=== PATIENT | male | born 1965 | race Caucasian/White ===

== ENCOUNTER 2016-08-31 11:47 | Emergency (ER) | payer OTHER ==
[2016-08-31] MEDS ORDERED: CANA1TAB4 PO (12:26)
[2016-08-31] MEDS ORDERED: GLIP10TA13 PO (12:26)
[2016-08-31] MEDS ORDERED: ENAL20TA PO (12:26)
[2016-08-31] MEDS ORDERED: HYDR25TA6 PO (12:26)
[2016-08-31] MEDS ORDERED: METF10002 PO (12:26)
[2016-08-31] MEDS ORDERED: CARV12.543 PO (12:26)
[2016-08-31 12:39] LABS: ASPARTATE AMINO TRANSFERASE 19 U/L (15-37); BLOOD UREA NITROGEN 22 mg/dL (7-18)
[2016-08-31 12:44] LABS: IS PT STATUS REG ER OR PRE ER? YES
[2016-08-31 14:12] VITALS: BP 117/78
== END 2016-08-31 14:15 | disposition home or self-care (01) ==
LOC: ED 13:29
DX: K80.20 Calculus of gallbladder without cholecystitis without obstruction (principal); K80.50 Calculus of bile duct without cholangitis or cholecystitis without obstruction; K85.00 Idiopathic acute pancreatitis without necrosis or infection; I10 Essential (primary) hypertension; E11.9 Type 2 diabetes mellitus without complications; G47.30 Sleep apnea, unspecified; F17.200 Nicotine dependence, unspecified, uncomplicated
CPT/HCPCS: 36415; 71010; 76700; 80053; 81003; 83690; 84484; 85025; 93005; 99285

== ENCOUNTER → 2020-09-29 | Outpatient (CLI) | payer OTHER ==
[~2020-09-29] MED LIST: CANA1TAB4 PO; CARV12.543 PO; ENAL20TA9 PO; GLIP10TA13 PO; HYDR25TA6 PO; METF10002 PO; REGADENOSON 0.4 MG/5 ML SYRINGE ONE
== END | disposition home or self-care (01) ==
LOC: CVU 06:31
PROVIDERS: ATTEND Internal Medicine Cardiovascular Disease
DX: I08.0 Rheumatic disorders of both mitral and aortic valves (principal); E11.9 Type 2 diabetes mellitus without complications; I10 Essential (primary) hypertension; R07.89 Other chest pain
CPT/HCPCS: 78452; 93017; 93306; 93356; A9502; J2785

== ENCOUNTER → 2020-11-04 | Outpatient (CLI) | payer OTHER ==
[~2020-11-04] MED LIST changes: -REGADENOSON 0.4 MG/5 ML SYRINGE ONE
[2020-11-04 10:54] LABS: ALANINE AMINOTRANSFERASE 52 U/L (12-78); ALBUMIN 3.8 g/dL (3.4-5.0); ALKALINE PHOSPHATASE 52 U/L (45-117); ANION GAP 7 mmol/L (5-15); BILIRUBIN,TOTAL 0.6 mg/dL (0.2-1.0); CHLORIDE 100 mmol/L (98-107); CREATININE 1.01 mg/dL (0.7-1.3); TOTAL PROTEIN 7.1 g/dL (6.4-8.2)
[2020-11-04 10:55] LABS: CHOL/HDL RATIO 3.2; CHOLESTEROL, TOTAL 114 mg/dL (140-239); HDL CHOL % 32 % (26-37); HDL CHOLESTEROL (DIRECT) 36 mg/dL (40-60); LDL CHOLESTEROL,CALCULATED 16 mg/dL (54-169); LDL/HDL RATIO 0.4 (0.5-3.0); TRIGLYCERIDES 309 mg/dL (50-200); VLDL CHOLESTEROL 62 mg/dL (0-25)
== END | disposition home or self-care (01) ==
LOC: LAB 10:01
PROVIDERS: ATTEND Physician Assistant
DX: I10 Essential (primary) hypertension (principal); E11.9 Type 2 diabetes mellitus without complications; E11.65 Type 2 diabetes mellitus with hyperglycemia; F17.210 Nicotine dependence, cigarettes, uncomplicated; R07.89 Other chest pain; R94.31 Abnormal electrocardiogram [ECG] [EKG]
CPT/HCPCS: 36415; 80053; 80061; 83036

== ENCOUNTER → 2020-11-04 | Outpatient (CLI) | payer OTHER ==
[~2020-11-04] MED LIST changes: +OMNIPAQUE 350 MG/ML, 75ML BOTTLE ONE
== END | disposition home or self-care (01) ==
LOC: CFH 08:21
PROVIDERS: ATTEND Family Medicine
DX: I70.0 Atherosclerosis of aorta (principal); I25.10 Atherosclerotic heart disease of native coronary artery without angina pectoris; Z72.0 Tobacco use
CPT/HCPCS: 71260; 82565; Q9967